=== PATIENT | male | born 1995 | race Caucasian/White ===

== ENCOUNTER 2018-04-20 03:28 | Observation (INO) ==
[2018-04-20] MEDS ORDERED: ONDANSETRON INJ 2 MG/ML 2 ML VIAL IV STA (03:42)
[2018-04-20] MEDS ORDERED: MoRPHine SULFATE 4 MG/ML 1 ML CARP\\VIAL IV STA (03:42)
[2018-04-20] MEDS ORDERED: SODIUM CHLORIDE 0.9% 500 ML IV ONE (03:42)
[2018-04-20 04:06] LABS: Basophils # (auto) 0.02 K/uL (0-0.2); Basophils % (auto) 0.1 %; Eosinophils # (auto) 0.03 K/uL (0-0.5); Eosinophils % (auto) 0.2 %; Hematocrit (blood only) 44.4 % (42-52); Hemoglobin 15.3 g/dL (14.0-18.0); Immature Granulocytes # (auto) 0.03 K/uL (0.00-0.02); Immature Granulocytes % (auto) 0.2 %; Lymphocytes # (auto) 1.82 K/uL (1.2-3.4); Lymphocytes % (auto) 13.6 %; Mean Corpuscular Hgb Conc 34.5 g/dL (32-36); Mean Corpuscular Volume 89.5 fL (80-100); Mean Platelet Volume 10.5 fL (7.4-10.4); Monocytes # (auto) 1.28 K/uL (0.11-0.59); Monocytes % (auto) 9.5 %; Neutrophils # (auto) 10.25 K/uL (1.4-6.5); Neutrophils % (auto) 76.4 %; Platelet Count 244 K/uL (130-400); RDW Standard Deviation 42.6 fL (36.4-46.3); Red Blood Count 4.96 M/uL (4.7-6.1); White Blood Count 13.43 K/uL (4.8-10.8)
[2018-04-20 04:25] LABS: Albumin Level 4.5 gm/dl (3.4-5.0); BUN Creatinine Ratio 11.8 (10-20); Calcium 9.2 mg/dl (8.5-10.1); Creatinine Clr Calc Pharmacy 115.7 ml/min; Est GFR (African American) 122.7; Est GFR (Non-African American) 105.8; Potassium 3.4 mmol/L (3.5-5.1)
[2018-04-20] MEDS ORDERED: HYDROmorphone INJ 1 MG/ML SYRINGE IV STA ×2 (04:26→05:49)
[2018-04-20 04:28] LABS: Albumin Globulin Ratio 1.4 (0.9-2); Bilirubin,Total 0.9 mg/dl (0.2-1); Globulin 3.3 gm/dl (2.5-4.0); Total Protein 7.8 gm/dl (6.4-8.2)
[2018-04-20] MEDS ORDERED: IOVERSOL 100ml IV PRN (04:43)
[2018-04-20] MEDS ORDERED: cefOXitin 2,000 MG/60 ML BAG IV STA (05:28)
[2018-04-20] MEDS: SODIUM CHLORIDE 0.9% 500 ML IV SCH ×2 (05:39→12:41)
--- NOTE | 2018-04-20 06:53 | Emergency Department Note ---
Entered by Maryuri Parada acting as a scribe for History of Present Illness General Chief complaint: Abdominal Pain Stated complaint: VOMITING Time Seen by Provider: 04/20/18 03:37 Source: patient Mode of arrival: other ([place]) Limitations: no limitations History of Present Illness Onset (ago): day(s) 2 Location: abdomen (right-sided ) Severity: severe Pain Consistency: + constant and + other (worsened today) Maximum Pain Intensity: 10 Associated symptoms: + denies other symptoms (difficulty urinating), + fever/ chills, + nausea/vomiting and + other (diarrhea) The patient is a 22 year old male who presents to the Emergency Room with complaints of severe right-sided abdominal pain that began 2 days ago. He reports that the pain is constant, noting that it worsened today. The patient complains of feeling feverish, nausea/vomiting, and diarrhea all day yesterday. He denies any difficulty urinating. The patient notes that he recently had surgery for a pilonidal cyst, stating that he has been taking clindamycin. He reports that this is his first time taking clindamycin. The patient notes that his surgery was done at [facility]. Home Medications Home Medications Medication Instructions Recorded Confirmed Type bismuth subsalicylate 15 ml PO UD PRN 04/20/18 04/20/18 History [Pepto-Bismol] clindamycin HCl 150 mg PO TID 04/20/18 04/20/18 History melatonin 0 mg PO HS PRN 04/20/18 04/20/18 History Allergies Allergy/AdvReac Type Severity Reaction Status Date / Time Latex, Natural Rubber Allergy .ITCHING Verified 04/20/18 05:39 Past Med/Surg History Medical History Pilonidal cyst Surgical History S/P surgical removal of pilonidal cyst Family History Other No pertinent family history Social History current occupational status: student Feels Safe at Home: Yes Smoking Status: Never smoker Preferred Language: Belarusian Communication Ability: Effective Review of Systems See HPI for pertinent positives & negatives. and A total of 10 systems reviewed and were otherwise negative Physical Exam Vital Signs Vital Signs - 24 hr 04/20/18 03:35 04/20/18 04:03 04/20/18 04:32 Temperature 36.8 C Temperature Source Oral Sepsis Recent Fever Within 48 Hours No Sepsis Action Taken by Nursing No Action Required Pulse Rate 70 70 Pulse Rate [Right Finger] 72 Pulse Rhythm Regular Regular Pulse Strength Normal Respiratory Rate 20 18 Respiratory Effort / Characteristics Non-Labored Non-Labored Spontaneous Respiratory Depth Normal Normal Respiratory Pattern Regular Regular Blood Pressure 155/95 H Blood Pressure [Right Arm] 153/89 H Blood Pressure Mean 115 Blood Pressure Mean [Right Arm] 110 Blood Pressure Position Sitting Blood Pressure Position [Right Arm] Lying Pulse Oximetry 99 99 100 Oxygen Delivery Method Room Air Room Air Room Air 04/20/18 06:26 Temperature Temperature Source Sepsis Recent Fever Within 48 Hours Sepsis Action Taken by Nursing Pulse Rate Pulse Rate [Right Finger] 72 Pulse Rhythm Pulse Strength Respiratory Rate 18 Respiratory Effort / Characteristics Non-Labored Spontaneous Respiratory Depth Normal Respiratory Pattern Regular Blood Pressure Blood Pressure [Right Arm] 148/77 H Blood Pressure Mean Blood Pressure Mean [Right Arm] 100 Blood Pressure Position Blood Pressure Position [Right Arm] Lying Pulse Oximetry 98 Oxygen Delivery Method Room Air HEENT: Head - normocephalic and atraumatic Pupils are equal, round, and reactive to light. Extraocular eye muscles are intact, and sclera are anicteric. Nose - moist nasal mucosa without discharge. Mouth - moist buccal mucosa. Oropharynx is nonerythematous and there is no tonsillar exudate or edema noted. Neck: Supple; no cervical lymphadenopathy Heart: Regular rate and rhythm. There is a normal S1 and S2 with no murmurs, clicks, or gallops appreciated. Lungs: Clear to auscultation bilaterally with no wheezes, rales, or rhonchi. Abdomen: Soft, nondistended, with good bowel sounds. There are no palpable pulsatile masses or hepatosplenomegaly. There is no rigidity noted. There is exquisite tenderness to RLQ with palpation. There is guarding and rebound noted in the right lower quadrant. Extremities: No evidence of cyanosis, clubbing, or edema. There are easily palpable peripheral pulses. Skin: warm with good turgor and no rashes. The skin is pale and diaphoretic. Course 0338: Past medical records reviewed. The patient was evaluated in room A03, and a complete history and physical examination were performed. The IV lock was initiated and labs were drawn as above. 0342: NSS 500 mls @ 999 mls/hr IV, Morphine Sulfate 4 mg IV, Zofran 4 mg IV. Patient will go for CT scan of the abdomen/pelvis to rule out acute appendicitis or rupture of the appendix. 0426: I checked on the patient, and he stated that he was having more pain, 0427: Dilaudid 1 mg IV 0524: The patient states that he had Pepto Bismol METALS ANALYST. 0526: I spoke with Dr. Garcia, [facility] general surgery, about the patient�s case. He will evaluate the patient further. Dr. Garcia recommended that I give the patient antibiotics, because it will be a while before he can get into the hospital. 0528: Mefoxin 2000 mg in 60 mls @ 100 mls/hr IV 0544: The patient complained of more pain. 0545: NSS 500 mls @ 125 mls/hr IV 0549: Dilaudid 1 mg IV 0615: I checked on the patient, and he stated that he is much more comfortable now. Consultations Consultation #1: I spoke with Dr. Garcia, [facility] general surgery, about the patient�s case. He will evaluate the patient further. Dr. Garcia recommended that I give the patient antibiotics, because it will be a while before he can get into the hospital. Time: 05:26 Administered Medications Sodium Chloride (Nss) 500 mls @ 125 mls/hr IV .Q4H SAMIA Stop: 05/20/18 05:44 Last Admin: 04/20/18 05:39 Dose: 125 mls/hr Ioversol (Optiray 320 100ml) 94 ml IV ONCE PRN PRN Reason: Interaction Checking Stop: 04/24/18 04:42 Last Admin: 04/20/18 04:45 Dose: 1 ml Discontinued Medications Hydromorphone HCl (Dilaudid) 1 mg IV NOW STA Stop: 04/20/18 04:27 Last Admin: 04/20/18 04:30 Dose: 1 mg Hydromorphone HCl (Dilaudid) 1 mg IV NOW STA Stop: 04/20/18 05:50 Last Admin: 04/20/18 05:53 Dose: 1 mg Sodium Chloride (Nss) 500 mls @ 999 mls/hr IV .Q31M ONE Stop: 04/20/18 04:12 Last Infusion: 04/20/18 04:31 Dose: Admin: 04/20/18 03:53 Dose: 999 mls/hr Cefoxitin Sodium (Mefoxin) 2,000 mg in 60 mls @ 100 mls/hr IV NOW STA Stop: 04/20/18 06:03 Last Infusion: 04/20/18 06:10 Dose: Admin: 04/20/18 05:39 Dose: 100 mls/hr Morphine Sulfate (Morphine Sulfate) 4 mg IV NOW STA Stop: 04/20/18 03:43 Last Admin: 04/20/18 03:53 Dose: 4 mg Ondansetron HCl (Zofran) 4 mg IV NOW STA Stop: 04/20/18 03:43 Last Admin: 04/20/18 03:53 Dose: 4 mg Medical Decision Making Differential Diagnosis The differential diagnosis includes: appendicitis, ruptured appendix, adverse reaction to clindamycin, perforated viscus, and colitis. Medical Records Attestation: I reviewed the patient's medical records. Home Medications Current Medication List: was personally reviewed by me Laboratory Data Attestation: I reviewed the patient's lab results. Result diagrams: 04/20/18 03:50 04/20/18 03:50 Lab Results 04/20/18 04/20/18 Range/Units 03:50 03:50 WBC 13.43 H (4.8-10.8) K/uL RBC 4.96 (4.7-6.1) M/uL Hgb 15.3 (14.0-18.0) g/dL Hct 44.4 (42-52) % MCV 89.5 (80-100) fL MCH 30.8 (25-34) pg MCHC 34.5 (32-36) g/dL RDW Std Deviation 42.6 (36.4-46.3) fL RDW Coeff of Hortensia 13.0 (11.5-14.5) % Plt Count 244 (130-400) K/uL MPV 10.5 H (7.4-10.4) fL Immature Gran % (Auto) 0.2 % Neut % (Auto) 76.4 % Lymph % (Auto) 13.6 % [place] % (Auto) 9.5 % Eos % (Auto) 0.2 % Baso % (Auto) 0.1 % Immature Gran # (Auto) 0.03 H (0.00-0.02) K/uL Neut # (Auto) 10.25 H (1.4-6.5) K/uL Lymph # (Auto) 1.82 (1.2-3.4) K/uL [place] # (Auto) 1.28 H (0.11-0.59) K/uL Eos # (Auto) 0.03 (0-0.5) K/uL Baso # (Auto) 0.02 (0-0.2) K/uL Sodium 136 (136-145) mmol/L Potassium 3.4 L (3.5-5.1) mmol/L Chloride 102 (98-107) mmol/L Carbon Dioxide 22 (21-32) mmol/L Anion Gap 12.0 H (3-11) BUN 12 (7-18) mg/dl Creatinine 1.01 (0.6-1.4) mg/dl Est Cr Clr Drug Dosing 115.7 ml/min Est GFR ( Amer) 122.7 Est GFR (Non-Af Amer) 105.8 BUN/Creatinine Ratio 11.8 (10-20) Glucose 113 H (70-99) mg/dl Calcium 9.2 (8.5-10.1) mg/dl Total Bilirubin 0.9 (0.2-1) mg/dl AST 14 L (15-37) U/L ALT 26 (12-78) U/L Alkaline Phosphatase 68 (45-117) U/L Total Protein 7.8 (6.4-8.2) gm/dl Albumin 4.5 (3.4-5.0) gm/dl Globulin 3.3 (2.5-4.0) gm/dl Albumin/Globulin Ratio 1.4 (0.9-2) Lipase 83 (73-393) U/L Imaging Data Radiologist's Impression: Radiology results as stated below per my review and the radiologist's interpretation: CT ABDOMEN & PELVIS With Contrast: Appendicitis. Appendix ectatic with prominent griffiths and adjacent fluid/ inflammatory changes. Does not fill with enteric contrast, example images 51 through 55 series 2. Suspect some reactive wall thickening of adjacent bowel, example distal ileum. Radiologist: Rubén Jimenez MD Study ready at 05:02 and initial results transmitted at 05:13. Blood Pressure Blood Pressure Findings: Elevated blood pressure Blood Pressure Disposition: elevated BP felt to be situational MDM Narrative The patient is a 22 year old male who presents to the Emergency Room with complaints of severe right-sided abdominal pain that began 2 days ago. The patient is afebrile but describes hot and cold spells. On physical exam, the patient has reproducible discomfort in the right lower quadrant of the abdomen with some associated guarding and rebound. Patient has a mild leukocytosis. CT scan of the abdomen/pelvis confirms an acute appendicitis. Patient was started on IV fluids and given a dose of IV Mefoxin. He is comfortable at this time. Impression & Plan Acute appendicitis Discharge Plan Visit Data Chief Complaint: Abdominal Pain Stated Complaint: VOMITING ED Provider: Elsie Zafar Discharge Problem: Acute appendicitis Patient Disposition: Being Evaluated by Surgeon Forms Stand Alone Forms: My [facility] Prescriptions Prescriptions: No Action clindamycin HCl 150 mg Capsule 150 mg PO TID RF: 0 melatonin 3 mg Tablet PO HS PRN (Reason: Insomnia) RF: 0 bismuth subsalicylate [Pepto-Bismol] 262 mg/15 mL Suspension 15 ml PO UD PRN (Reason: Gi Upset) RF: 0 Referrals Referrals: [place] [Primary Care Provider] - The scribe's documentation has been prepared under my direction and personally reviewed by me in its entirety. I confirm that the note above accurately reflects all work, treatment, procedures, and medical decision making performed by me.
--- NOTE | 2018-04-20 08:07 | CT Scan Report ---
CT abd pelvis IV con only CLINICAL HISTORY: 22 years-old Male presenting with appendicitis. TECHNIQUE: Multidetector CT of the abdomen and pelvis was performed after the administration of intra venous contrast. IV contrast: None. One or more dose lowering techniques were used consistent with th e principles of ALARA (as low as reasonably achievable), including automatic exposure control, mA or kV adjustment to individual patient size, and/or use of iterative reconstruction. COMPARISON: None. CT DOSE (mGy.cm): The estimated cumulative dose is 390.33 mGy.cm. FINDINGS: Job Foreman topogram: Unremarkable. Lung bases: Normal heart size. No pericardial or pleural effusion. No focal infiltrate or nodule at t he lung bases. Liver: Normal morphology. Vague hypoattenuation along the fissure for the ligamentum teres likely per fusional variation or focal fat. No liver lesion. Patent hepatic vasculature. Biliary: No intrahepatic or extrahepatic biliary ductal dilatation. Normal gallbladder. Pancreas: Normal. Spleen: Normal. Adrenal glands: Normal. Kidneys and ureters: Normal. No hydronephrosis. Bladder: Incompletely evaluated secondary to underdistention. Pelvic organs: Prostate and seminal vesicles normal. Bowel: The appendix is top normal in size measuring 6 mm in diameter. It does not opacify with oral c ontrast. There is significant periappendiceal fat stranding. The appendiceal tip is relatively more d ilated with a greater degree of mucosal hyperenhancement and wall thickening. The tip measures 8 mm i n diameter. The greatest degree of inflammation is located at the tip. There is mild adjacent wall th ickening of the terminal ileum, which is likely secondary. No bowel obstruction. Peritoneal cavity: No extraluminal or free intraperitoneal gas. Trace free fluid in the right paracol ic gutter. No well-defined fluid collection is suggest abscess. Significant thickening in the right lower quadrant evident. Lymph nodes: No enlarged lymph nodes in the abdomen or pelvis. Vasculature: Aorta and IVC patent and normal in caliber. Abdominal wall: Normal. Musculoskeletal: Normal. IMPRESSION: 1. Acute uncomplicated tip appendicitis. No abscess or evidence of perforation at this time. Surgica l consultation is warranted. The report will be called/faxed according to standard departmental protocol. Electronically signed by: Donal Pandey M.D. 04/20/2018 8:05 AM
[2018-04-20] MEDS ORDERED: HYDROmorphone INJ 1 MG/ML SYRINGE IV PRN ×2 (08:20→09:19)
--- NOTE | 2018-04-20 08:34 | Anesthesiology Consultation ---
Date of Service April 20, 2018 Assessment & Plan (1) Encounter for pre-operative examination: Chart Review Chart Review: Acceptable Risk for Surgery NPO Date Last Intake of Fluids: 04/20/18 Time Last Intake of Fluids: 00:00 Date Last Intake of Solids: 04/19/18 Time Last Intake of Solids: 17:00 History Surgery Operation Date: 04/20/18 15:45 Proposed Procedures p Laparoscopic Appendectomy - Victor M Garcia, Height/Weight Height: 5 ft 9 in Weight: 81.2 kg Allergies Allergy/AdvReac Type Severity Reaction Status Date / Time Latex, Natural Rubber Allergy .ITCHING Verified 04/20/18 05:39 Medications Home Medications Medication Instructions Recorded Confirmed Last Taken bismuth subsalicylate 15 ml PO UD PRN 04/20/18 04/20/18 Unknown [Pepto-Bismol] clindamycin HCl 150 mg PO TID 04/20/18 04/20/18 Unknown melatonin 0 mg PO HS PRN 04/20/18 04/20/18 Unknown Active Medications Generic Name Dose Route Start Last Admin Trade Name Freq PRN Reason Stop Dose Admin Hydromorphone HCl 1 mg 04/20/18 08:20 04/20/18 08:25 Dilaudid IV 05/04/18 08:19 1 mg Q15M PRN Administration Pain Sodium Chloride 500 mls @ 125 mls/hr 04/20/18 05:45 04/20/18 05:39 Nss IV 05/20/18 05:44 125 mls/hr .Q4H SAMIA Administration Ioversol 94 ml 04/20/18 04:43 04/20/18 04:45 Optiray 320 100ml IV 04/24/18 04:42 1 ml ONCE PRN Administration Interaction Checking Past Medical History Medical History Pilonidal cyst Past Family History Family History Other No pertinent family history Past Surgical History Surgical History S/P surgical removal of pilonidal cyst Social History Smoking Status: Never smoker Physical Exam Vital Signs Last Vital Signs Temp 36.8 C 04/20/18 03:35 Pulse 104 H 04/20/18 07:18 Resp 18 04/20/18 07:18 BP 147/75 H 04/20/18 07:18 Pulse Ox 99 04/20/18 07:18 Testing Laboratory Results 04/20/18 03:50 04/20/18 03:50
[2018-04-20 08:41] LABS: Appearance Urine Clear (Clear); Bilirubin Urine Negative (Negative); Blood Urine Negative (Negative); Color Urine Yellow; Glucose Urine UA Negative (Negative); Leukocyte Esterase Urine Negative (Negative); Nitrite Urine Negative (Negative); Protein Urine Negative (Negative); Specific Gravity Urine > 1.045 (1.000-1.030); Urobilinogen Urine Negative (Negative); pH Urine 5.5 (4.5-7.5)
[2018-04-20 08:44] LABS: Ketones Urine 3+ (Negative)
[2018-04-20] MEDS ORDERED: ATROPINE SULFATE 0.1 MG/ML 10ML SYR IV PRN (09:19)
[2018-04-20] MEDS ORDERED: ONDANSETRON INJ 2 MG/ML 2 ML VIAL IV PRN ×2 (09:19→12:25)
[2018-04-20] MEDS ORDERED: ePHEDrine sulfate 50 MG/ML AMP IV PRN (09:19)
--- NOTE | 2018-04-20 09:26 | History & Physical Report ---
Date of Service April 20, 2018 Assessment & Plan (1) Acute appendicitis: discussed options/risks ( bleeding/infection/dvt/pe/staple line leaks/ injury to other organs etc....) questions answered will proceed with lap/poss open appendectomy Acute appendicitis type: other Appendicitis abscess presence: Appendicitis gangrene presence: Appendicitis perforation presence: Qualified Code(s): K35.890 - Other acute appendicitis without perforation or gangrene; K35.89 - Other acute appendicitis History of Present Illness Primary Care Provider: [facility] pt with 2 day history of abdominal pain now radiating to RLQ. CT c/w acute appendicitis Allergies Allergy/AdvReac Type Severity Reaction Status Date / Time Latex, Natural Rubber Allergy .ITCHING Verified 04/20/18 05:39 Home Medications Home Medications Medication Instructions Recorded Confirmed Type bismuth subsalicylate 15 ml PO UD PRN 04/20/18 04/20/18 History [Pepto-Bismol] clindamycin HCl 150 mg PO TID 04/20/18 04/20/18 History melatonin 0 mg PO HS PRN 04/20/18 04/20/18 History Past Med/Surg History Medical History Pilonidal cyst Surgical History S/P surgical removal of pilonidal cyst Family History Other No pertinent family history Social History current occupational status: student Feels Safe at Home: Yes Smoking Status: Never smoker Preferred Language: Swedish Communication Ability: Effective Review of Systems All systems reviewed & are unremarkable except as noted in HPI & below Physical Exam 2 Vital Signs (Past 24 Hours): Last Vital Signs Temp 37.0 C 04/20/18 09:06 Pulse 99 H 04/20/18 09:06 Resp 18 04/20/18 09:06 BP 159/82 H 04/20/18 09:06 Pulse Ox 98 04/20/18 09:06 Physical Exam: alert. nad Heent: Pearla. eomi Heart: RRR-slight tachy Lungs: CTA b/l abd: soft. +RLQ ttp. +guarding ext: no c/c/e Results & Data Medications Administered Hydromorphone HCl (Dilaudid) 1 mg IV Q15M PRN PRN Reason: Pain Stop: 05/04/18 08:19 Last Admin: 04/20/18 08:25 Dose: 1 mg Sodium Chloride (Nss) 500 mls @ 125 mls/hr IV .Q4H SAMIA Stop: 05/20/18 05:44 Last Admin: 04/20/18 05:39 Dose: 125 mls/hr Ioversol (Optiray 320 100ml) 94 ml IV ONCE PRN PRN Reason: Interaction Checking Stop: 04/24/18 04:42 Last Admin: 04/20/18 04:45 Dose: 1 ml
[2018-04-20] MEDS ORDERED: SCOPOLAMINE 1.5 MG TDSY ONE (09:30)
[2018-04-20] MEDS ORDERED: BUPIVACAINE/EPINEPHRINE 0.5% MPF 1:200,000 30 ML VIAL ONE (09:42)
[2018-04-20] MEDS ORDERED: MIDAZOLAM HCL 1 MG/ML 2ML VIAL ONE (09:44)
[2018-04-20] MEDS ORDERED: ROCURONIUM BROMIDE 10 MG/ML 5 ML VIAL ONE (09:44)
[2018-04-20] MEDS ORDERED: fentaNYL citrate 100 MCG/2 ML VIAL ONE ×2 (09:44→10:18)
[2018-04-20] MEDS ORDERED: PROPOFOL IV EMULSION 10 MG/ML 20 ML VIAL IV ONE ×2 (09:44→10:32)
[2018-04-20] MEDS ORDERED: GLYCOPYRROLATE 0.2 MG/ML VIAL ONE (10:33)
[2018-04-20] MEDS ORDERED: NEOSTIGMINE METHYLSULFATE 5 MG/5 ML SYR ONE (10:33)
--- NOTE | 2018-04-20 11:04 | Operative Report ---
Post Operative Report Pre & Post Diagnosis Operation Date: 04/20/18 15:45 Pre-Op Diagnosis: Acute Appendicitis Post-Op Diagnosis: Acute Appendicitis Procedure Operation Date: 04/20/18 15:45 Actual Procedures p Laparoscopic Appendectomy(Not Applicable) - Victor M Garcia DO Surgeon Victor M Garcia DO Economic Development Specialist pamella José Estimated Blood Loss 5 Findings Consistent with Post-Op Diagnosis Specimens appendix Description of Procedure After informed consent was obtained the patient was taken to the operating room and placed in supine position. After successful intubation a Moyer catheter was placed and the left arm was tucked. A Moyer catheter was inserted sterilely. I began by making a periumbilical incision with an 11 blade scalpel and carried this down through the soft tissue using electrocautery. The anterior rectus fascia was opened using electrocautery and 2 #0 Vicryl stay sutures were placed. The peritoneum was elevated using hemostats and incised under direct vision using a Metzenbaum scissor. A finger sweep was performed. A 12 mm Childress trocar was placed and the abdomen was insufflated to 18 mmHg. A laparoscope was inserted and the abdomen was examined in 360�. A suprapubic 5 mm port and a left lower quadrant 12 mm port were placed under direct vision. The patient was air planed to the left as well as placed in a slight Trendelenburg position. We began by looking in the right lower quadrant. We were able to readily identify the appendix and it was grossly inflamed. It had not perforated. There is a small amount of purulent fluid in the right lower quadrant and the pelvis. We immediately irrigated and suctioned this out. I was able to use primarily blunt dissection to pull the appendix away from the right lower quadrant sidewall. I used a [place] dissector to create a window in the mesentery of the appendix. I was then able to use a JYOTI brown cartridge stapler to transect the appendix at its base with the cecum. Next I used a brown cartridge JYOTI stapler to transect the mesentery itself. The appendix was then placed into an Endo Catch bag and removed from the camera port site. We thoroughly irrigated the right lower quadrant as well as the pelvis. There was adequate hemostasis. I ran the small bowel backwards from the terminal ileum for about 6 feet all of which was normal. All the peritoneal surfaces were normal. Small/ large bowel, liver, stomach etc. all appeared grossly normal. We did a final irrigation and then removed all the trochars and desufflated the abdomen. The fascia of the camera port as well as the left lower quadrant were closed using 0 Vicryl in [id number] fashion. Wounds were all irrigated and closed using 4-0 Monocryl. Marcaine was injected around them for postoperative analgesia and skin glue used as a dressing. The patient was awakened extubated and transferred to recovery in stable condition. My physician's press assistant was present through the entire case. She assisted with prepping the patient and helped with exposure for port placement, helped run the camera and helped with fascial/wound closure at the end of the procedure as well as dressing placement. I attest to the content of the Intraoperative Record and any orders documented therein. Any exceptions are noted below. I attest to the content of the Intraoperative Record and any orders documented therein. Any exceptions are noted below.
[2018-04-20] MEDS: fentaNYL citrate 100 MCG/2 ML VIAL IV PRN ×4 (11:10→11:25)
[2018-04-20] MEDS ORDERED: KETOROLAC 30 MG/ML VIAL ONE (11:27)
[2018-04-20] MEDS ORDERED: KETOROLAC 30 MG/ML VIAL IV ONE (11:29)
--- NOTE | 2018-04-20 11:29 | Anesthesiology Progress Note ---
Date of Service April 20, 2018 Anesthesia Post Procedure Vital Signs Vital Signs: Temp Pulse Pulse Pulse Resp BP BP 04/20/18 11:18 85 17 152/90 H 04/20/18 11:10 84 18 166/98 H 04/20/18 11:00 93 H 24 176/79 H 04/20/18 10:51 37.2 C 105 H 20 143/108 H 04/20/18 09:06 37.0 C 99 H 18 159/82 H 04/20/18 08:46 81 18 139/73 04/20/18 07:18 104 H 18 147/75 H 04/20/18 06:26 72 18 148/77 H 04/20/18 04:32 72 18 153/89 H 04/20/18 04:03 70 04/20/18 03:35 36.8 C 70 20 155/95 H Pulse Ox 04/20/18 11:18 100 04/20/18 11:10 100 04/20/18 11:00 100 04/20/18 10:51 100 04/20/18 09:06 98 04/20/18 08:46 95 04/20/18 07:18 99 04/20/18 06:26 98 04/20/18 04:32 100 04/20/18 04:03 99 04/20/18 03:35 99 Pain Intensity Right Abdomen: Pain Intensity: 4 Notes Mental Status: alert / awake / arousable and participated in evaluation Nausea / Vomiting: adequately controlled Pain: adequately controlled Airway Patency, RR, SpO2: stable & adequate BP & HR: stable & adequate Hydration State: stable & adequate Anesthetic Complications: no major complications apparent and Pt Satisfied with anesthetic care
[2018-04-20] MEDS ORDERED: HYDROCODONE/ACETAMOPHEN 5/325MG TAB PO PRN ×2 (12:25)
[2018-04-20] MEDS ORDERED: MoRPHine SULFATE 4 MG/ML 1 ML CARP\\VIAL IV PRN ×2 (12:25)
[2018-04-20 12:57] VITALS: TEMP 97.9
[2018-04-20 13:34] VITALS: O2SAT 97
[2018-04-20] MEDS ORDERED: Nursing to Pharmacy Communication ONE (13:41)
[2018-04-20] MEDS ORDERED: HYDROCODONE/ACETAMOPHEN 5/325MG TAB PO ONE (13:50)
[2018-04-20] MEDS ORDERED: SODIUM CHLORIDE 0.9% 1000ML 1,000 ML IV SCH (14:15)
[2018-04-20 14:29] VITALS: BP 133/79
[2018-04-20 14:30] VITALS: PULSE 90
[2018-04-20] MEDS ORDERED: cefOXitin 2,000 MG in DEXTROSE 5% 50 ML IV SCH (15:00)
--- NOTE | 2018-04-22 03:03 | Discharge Summary ---
PRIMARY DISCHARGE DIAGNOSIS: Acute appendicitis. SECONDARY DISCHARGE DIAGNOSIS: Pilonidal cyst. PROCEDURE PERFORMED: Laparoscopic appendectomy. HOSPITAL COURSE: The patient is a 22-year-old male who presented to Emergency Department with 2 days of abdominal pain. His white count was 13,000. CT was consistent with tip appendicitis. He was taken to the operating room for laparoscopic appendectomy. The procedure was well tolerated. He was transferred to the surgical floor for observation. Later in the day, he was feeling well. He was tolerating diet and oral analgesics. His abdomen was soft. He was stable for discharge. He does have a pilonidal cyst which was recently incised at [facility]. The packing of this wound was changed also. DISCHARGE INSTRUCTIONS: Discharged home. He will be staying locally with his mother. Follow up with Dr. Garcia in 2 weeks. Follow up with [facility] on Tuesday for repacking of his pilonidal wound. DISCHARGE MEDICATIONS: [place] 1-2 tablets every 4 hours as needed and can continue his home medications of clindamycin 150 mg t.i.d., Pepto-Bismol as needed, and melatonin at bedtime.
== END 2018-04-20 15:00 | disposition home or self-care (01) ==
LOC: ED 03:28 → ASU 08:49 → 3N 08:49